=== PATIENT | male | born 1955 | race African-American/Black ===

== ENCOUNTER 2017-10-23 04:22 | Emergency (ER) | payer MEDICARE, MEDICAID ==
[~2017-10-23] VITALS: Ht 177.8 cm; Wt 73.6 kg
[~2017-10-23 04:22] MED LIST: CRESTOR; LUNESTA; NAPR-1176 PO; ZET10 PO
[2017-10-23] MEDS ORDERED: ONDANSETRON HCL 4MG/2ML VIAL IV STA (04:54)
[2017-10-23] MEDS ORDERED: ASPIRIN 81MG TABLET PO ONE (05:00)
[2017-10-23 05:10] VITALS: BP 135/61
[2017-10-23 05:16] LABS: BASOPHILS % 0.2 % (0.0-2.0); EOSINOPHILS % 0.3 % (0.0-5.0); HEMATOCRIT. 38.8 % (42.0-52.0); LYMPHOCYTES % 24.9 % (20.0-50.0); MEAN CORPUSCULAR HEMOGLOBIN 30.3 pg (28.0-32.0); MEAN CORPUSCULAR VOLUME 90.5 fL (80.0-94.0); MEAN PLATELET VOLUME 7.3 fl (7.4-10.4); MONOCYTES % 6.7 % (2.0-8.0); NEUTROPHILS % 67.9 % (40.0-76.0); PLATELET 320 x1000/uL (130-400); RED BLOOD CELL COUNT 4.28 mill/uL (4.7-6.1); RED CELL DISTRIBUTION WIDTH 15.5 % (11.6-14.6)
[2017-10-23 05:23] LABS: PARTIAL THROMBOPLASTIN TIME 24.2 sec (23.4-31.0); PROTHROMBIN TIME 10.5 sec (9.4-11.6)
[2017-10-23 05:28] LABS: CARBON DIOXIDE 30 mEq/L (21-32); CHLORIDE 103 mEq/L (98-107); ETHANOL BLOOD 14 mg/dL; TROPONIN I < 0.02 ng/mL (0.00-0.04)
== END 2017-10-23 07:06 | disposition home or self-care (01) ==
LOC: ER 04:22
DX: K21.9 Gastro-esophageal reflux disease without esophagitis (principal); E78.00 Pure hypercholesterolemia, unspecified; F10.20 Alcohol dependence, uncomplicated; Y90.0 Blood alcohol level of less than 20 mg/100 ml; Z79.82 Long term (current) use of aspirin
CPT/HCPCS: 36415; 71010; 80053; 83690; 83880; 84484; 85025; 85610; 85730; 93005; 96374; 99285; G0482; J2405; J7030

== ENCOUNTER 2018-11-17 12:01 | Emergency (ER) | payer MEDICARE, MEDICAID ==
[~2018-11-17] VITALS: Ht 172.7 cm
[2018-11-17 12:04] VITALS: BP 116/74
== END 2018-11-17 13:35 | disposition left against medical advice (07) ==
LOC: ER 12:12
DX: R07.89 Other chest pain (principal); M79.10 Myalgia, unspecified site; E78.00 Pure hypercholesterolemia, unspecified; F10.20 Alcohol dependence, uncomplicated; Z79.899 Other long term (current) drug therapy; Y90.9 Presence of alcohol in blood, level not specified
CPT/HCPCS: 93005; 99283

== ENCOUNTER 2018-11-19 18:35 | Emergency (ER) | payer MEDICARE, MEDICAID ==
[~2018-11-19] VITALS: Ht 175.3 cm; Wt 75.0 kg
[2018-11-19] MEDS ORDERED: IBUPROFEN 600MG TABLET PO STA (18:49)
[2018-11-19 19:49] LABS: BASOPHILS % 0.4 % (0.0-2.0); EOSINOPHILS % 1.3 % (0.0-5.0); HEMATOCRIT. 38.4 % (42.0-52.0); HEMOGLOBIN. 12.8 g/dL (14.0-18.0); LYMPHOCYTES % 29.8 % (20.0-50.0); MEAN CORPUSCULAR HEMOGLOBIN 31.7 pg (28.0-32.0); MEAN CORPUSCULAR VOLUME 95.3 fL (80.0-94.0); MEAN PLATELET VOLUME 7.8 fl (7.4-10.4); MONOCYTES % 7.5 % (2.0-8.0); PLATELET 344 x1000/uL (130-400); RED BLOOD CELL COUNT 4.03 mill/uL (4.7-6.1); RED CELL DISTRIBUTION WIDTH 16.5 % (11.6-14.6)
[2018-11-19 19:53] LABS: CHLORIDE 107 mEq/L (98-107)
[2018-11-19 19:57] LABS: ETHANOL BLOOD 32 mg/dL
[2018-11-19 20:50] VITALS: BP 127/80
== END 2018-11-19 21:45 | disposition home or self-care (01) ==
LOC: ER 21:45
DX: S20.211A Contusion of right front wall of thorax, initial encounter (principal); E78.00 Pure hypercholesterolemia, unspecified; I51.9 Heart disease, unspecified; Z79.899 Other long term (current) drug therapy; W18.39XA Other fall on same level, initial encounter; Y93.89 Activity, other specified; Y92.89 Other specified places as the place of occurrence of the external cause; Y99.8 Other external cause status
CPT/HCPCS: 36415; 71045; 80053; 80307; 85025; 99284; G0482

== ENCOUNTER 2019-01-04 03:27 | Emergency (ER) | payer MEDICARE, MEDICAID ==
[~2019-01-04] VITALS: Ht 177.8 cm; Wt 82.0 kg
[2019-01-04 03:38] VITALS: BP 109/78
== END 2019-01-04 06:00 | disposition left against medical advice (07) ==
LOC: ER 04:14
DX: Z53.21 Procedure and treatment not carried out due to patient leaving prior to being seen by health care provider (principal)

== ENCOUNTER 2019-03-23 19:01 | Emergency (ER) | payer MEDICARE, MEDICAID ==
[~2019-03-23] VITALS: Ht 182.9 cm; Wt 79.0 kg
[2019-03-23] MEDS ORDERED: IBUPROFEN 600MG TABLET PO ONE (19:45)
[2019-03-23] MEDS ORDERED: CLINDAMYCIN HCL 150MG CAPSULE PO SCH (20:00)
[2019-03-23 21:35] VITALS: BP 106/69
== END 2019-03-23 22:21 | disposition left against medical advice (07) ==
LOC: ER 19:01
DX: S01.511A Laceration without foreign body of lip, initial encounter (principal); T51.91XA Toxic effect of unspecified alcohol, accidental (unintentional), initial encounter; X58.XXXA Exposure to other specified factors, initial encounter; Y93.89 Activity, other specified; Y92.89 Other specified places as the place of occurrence of the external cause; Y99.8 Other external cause status
CPT/HCPCS: 36415; 80320; 99283; G0480

== ENCOUNTER 2019-05-09 12:59 | Emergency (ER) | payer MEDICARE, MEDICAID ==
[~2019-05-09] VITALS: Ht 177.8 cm; Wt 73.0 kg
[2019-05-09 13:10] VITALS: BP 118/60
== END 2019-05-09 15:23 | disposition home or self-care (01) ==
LOC: ER 12:59
DX: F10.10 Alcohol abuse, uncomplicated (principal); M25.552 Pain in left hip; F32.9 Major depressive disorder, single episode, unspecified; F17.210 Nicotine dependence, cigarettes, uncomplicated; Y90.9 Presence of alcohol in blood, level not specified; Z91.81 History of falling
CPT/HCPCS: 99283

== ENCOUNTER 2019-07-26 00:27 | Emergency (ER) | payer MEDICARE, MEDICAID ==
[~2019-07-26] VITALS: Ht 182.9 cm; Wt 82.0 kg
[~2019-07-26 00:27] MED LIST changes: +EZET10TA13 PO; -ZET10 PO
[2019-07-26 00:31] VITALS: BP 110/60
== END 2019-07-26 03:09 | disposition left against medical advice (07) ==
LOC: ER 00:27
DX: Z53.21 Procedure and treatment not carried out due to patient leaving prior to being seen by health care provider (principal)

== ENCOUNTER 2019-10-16 06:38 | Emergency (ER) | payer MEDICARE, MEDICAID ==
[~2019-10-16] VITALS: Ht 188 cm; Wt 82.0 kg
[2019-10-16] MEDS ORDERED: OXYCODONE HCL/ACETAMINOPHEN 5/325MG TABLET PO ONE (07:00)
[2019-10-16 10:00] VITALS: BP 109/64
== END 2019-10-16 10:00 | disposition home or self-care (01) ==
LOC: ER 06:38
DX: M79.18 Myalgia, other site (principal); F41.8 Other specified anxiety disorders; E78.00 Pure hypercholesterolemia, unspecified; W01.0XXA Fall on same level from slipping, tripping and stumbling without subsequent striking against object, initial encounter; Z91.81 History of falling; Y93.01 Activity, walking, marching and hiking; Y92.89 Other specified places as the place of occurrence of the external cause; Y99.9 Unspecified external cause status
CPT/HCPCS: 71101; 73560; 99283

== ENCOUNTER 2019-11-19 04:24 | Emergency (ER) | payer MEDICARE, MEDICAID ==
[~2019-11-19] VITALS: Ht 177.8 cm; Wt 75.0 kg
[2019-11-19] MEDS ORDERED: HYDROCODONE/ACETAMINOPHEN 5/325MG TABLET PO ONE (06:00)
[2019-11-19 07:11] VITALS: BP 170/97
== END 2019-11-19 07:13 | disposition home or self-care (01) ==
LOC: ER 04:24
DX: S22.43XA Multiple fractures of ribs, bilateral, initial encounter for closed fracture (principal); W01.0XXA Fall on same level from slipping, tripping and stumbling without subsequent striking against object, initial encounter; Y93.89 Activity, other specified; Y92.511 Restaurant or cafe as the place of occurrence of the external cause
CPT/HCPCS: 71101; 99283

== ENCOUNTER 2020-12-05 20:52 | Emergency (ER) | payer MEDICARE, MEDICAID ==
[~2020-12-05] VITALS: Ht 177.8 cm; Wt 69.0 kg
[2020-12-05] MEDS ORDERED: MAGNESIUM/ALUMINUM HYDROXIDE/SIMETHICONE 30ML UDC PO STA (22:57)
[2020-12-05] MEDS ORDERED: ONDANSETRON 4MG ODT PO STA (22:57)
[2020-12-05] MEDS ORDERED: VISCOUS LIDOCAINE 2% 15 ML UDC PO STA (22:57)
[2020-12-05] MEDS ORDERED: ACETAMINOPHEN 325MG TABLET PO STA (22:57)
[2020-12-05 23:31] LABS: BASOPHILS % 0.8 % (0.0-2.0); EOSINOPHILS % 0.4 % (0.0-5.0); HEMATOCRIT. 35.8 % (42.0-52.0); HEMOGLOBIN. 12.5 g/dL (14.0-18.0); LYMPHOCYTES % 15.6 % (20.0-50.0); MEAN CORPUSCULAR HEMOGLOBIN 32.4 pg (28.0-32.0); MEAN CORPUSCULAR VOLUME 93.1 fL (80.0-94.0); MEAN PLATELET VOLUME 6.8 fl (7.4-10.4); MONOCYTES % 2.7 % (2.0-8.0); NEUTROPHILS % 80.5 % (40.0-76.0); PLATELET 421 x1000/uL (130-400); RED BLOOD CELL COUNT 3.85 mill/uL (4.7-6.1); RED CELL DISTRIBUTION WIDTH 14.9 % (11.6-14.6)
[2020-12-05 23:35] LABS: CLARITY URINE CLEAR (CLEAR); COLOR URINE YELLOW (YELLOW); KETONES URINE 1+ (NEGATIVE); LEUKOCYTE ESTERASE URINE NEGATIVE (NEGATIVE); NITRITE URINE NEGATIVE (NEGATIVE); OCCULT BLOOD URINE TRACE (NEGATIVE); PROTEIN URINE 1+ (NEGATIVE); SPECIFIC GRAVITY URINE 1.017 (1.005-1.030); UROBILINOGEN URINE 0.2 E.U./dL (0.2-1.0)
[2020-12-05 23:37] LABS: CHLORIDE 109 mEq/L (98-107)
[2020-12-06] MEDS ORDERED: CEFTRIAXONE 1 G PREMIX 50 ML IV ONE (01:00)
[2020-12-06] MEDS ORDERED: ASPIRIN 81MG TABLET PO ONE (01:00)
[2020-12-06] MEDS ORDERED: AZITHROMYCIN 500 MG in DEXT 5% WATER 250 ML IV ONE (01:00)
[2020-12-06 01:30] VITALS: BP 131/91
== END 2020-12-06 01:52 | disposition left against medical advice (07) ==
LOC: ER 20:52
DX: J18.9 Pneumonia, unspecified organism (principal); E16.2 Hypoglycemia, unspecified; Z20.822 Contact with and (suspected) exposure to COVID-19; I10 Essential (primary) hypertension
CPT/HCPCS: 36415; 71045; 74176; 80053; 81003; 82962; 83605; 83690; 83880; 84484; 85025; 87040; 87086; 93005; 99285; J0456; J7060; Q0162

== ENCOUNTER 2021-09-19 14:18 | Emergency (ER) | payer MEDICARE, MEDICAID ==
[~2021-09-19] VITALS: Ht 177.8 cm; Wt 68.0 kg
[2021-09-19] MEDS ORDERED: LIDOCAINE HCL/EPINEPHRINE 1%-EPI 1:100,000 20 ML VIAL INFIL ONE (15:15)
[2021-09-19] MEDS ORDERED: TETANUS, DIPHTHERIA, PERTUSSIS VAC/PF 0.5ML (>10YR OLD) IM ONE (15:15)
[2021-09-19 15:27] VITALS: BP 119/68
[2021-09-19 16:40] LABS: BASOPHILS % 0.3 % (0.0-2.0); EOSINOPHILS % 2.4 % (0.0-5.0); HEMATOCRIT. 37.7 % (42.0-52.0); HEMOGLOBIN. 12.7 g/dL (14.0-18.0); LYMPHOCYTES % 27.4 % (20.0-50.0); MEAN CORPUSCULAR HEMOGLOBIN 34.1 pg (28.0-32.0); MEAN CORPUSCULAR VOLUME 101.3 fL (80.0-94.0); MONOCYTES % 4.4 % (2.0-8.0); NEUTROPHILS % 65.5 % (40.0-76.0); PLATELET 286 x1000/uL (130-400); RED BLOOD CELL COUNT 3.72 mill/uL (4.7-6.1); RED CELL DISTRIBUTION WIDTH 14.6 % (11.6-14.6)
[2021-09-19 16:42] LABS: CHLORIDE 112 mEq/L (98-107)
[2021-09-19 16:45] LABS: PROTHROMBIN TIME 10.3 sec (9.6-11.0)
[2021-09-19 16:51] LABS: CREATINE KINASE 195 IU/L (39-308)
[2021-09-19] MEDS ORDERED: MAGNESIUM 2 G PREMIX 50 ML IV ONE (17:00)
[2021-09-19] MEDS ORDERED: FOLIC ACID 1 MG, THIAMINE HCL 100 MG, MVI, ADULT NO.1 10 ML in DEXTROSE 5% WATER 1,000 ML IV ONE ×2 (17:00→18:00)
== END 2021-09-19 23:08 | disposition home or self-care (01) ==
LOC: ER 14:18
DX: S01.01XA Laceration without foreign body of scalp, initial encounter (principal); F10.229 Alcohol dependence with intoxication, unspecified; R94.31 Abnormal electrocardiogram [ECG] [EKG]; I10 Essential (primary) hypertension; Y90.9 Presence of alcohol in blood, level not specified; W01.0XXA Fall on same level from slipping, tripping and stumbling without subsequent striking against object, initial encounter; Y93.89 Activity, other specified; Y92.018 Other place in single-family (private) house as the place of occurrence of the external cause
CPT/HCPCS: 36415; 70450; 71045; 72125; 80053; 82550; 83690; 84484; 85025; 85610; 90471; 90715; 93005; 96365; 99285; J3411; J3475; J3490; J7040; J7070

== ENCOUNTER 2021-11-02 08:44 | Emergency (ER) | payer MEDICARE, MEDICAID ==
[~2021-11-02] VITALS: Ht 177.8 cm; Wt 78.0 kg
[2021-11-02 09:07] VITALS: BP 140/85
== END 2021-11-02 10:45 | disposition home or self-care (01) ==
LOC: ER 08:44
DX: Z48.02 Encounter for removal of sutures (principal)
CPT/HCPCS: 99281

== ENCOUNTER 2021-12-19 20:27 | Emergency (ER) | payer MEDICARE, MEDICAID ==
[~2021-12-19] VITALS: Ht 172.7 cm; Wt 69.0 kg
[2021-12-19] MEDS ORDERED: TETANUS, DIPHTHERIA, PERTUSSIS VAC/PF 0.5ML (>10YR OLD) IM ONE (21:30)
[2021-12-19] MEDS ORDERED: BACITRACIN/POLYMYXIN B SULFATE OINT 15GM TOP ONE (23:45)
[2021-12-20] MEDS ORDERED: ACETAMINOPHEN 325MG TABLET PO ONE
[2021-12-20] MEDS ORDERED: IBUPROFEN 400MG TABLET PO ONE
[2021-12-20] MEDS ORDERED: BACITRACIN 15GM TUBE TOP ONE
[2021-12-20 00:06] VITALS: BP 134/77
== END 2021-12-20 00:25 | disposition home or self-care (01) ==
LOC: ER 20:27
DX: S01.112A Laceration without foreign body of left eyelid and periocular area, initial encounter (principal); S01.01XA Laceration without foreign body of scalp, initial encounter; R51.9 Headache, unspecified; W18.30XA Fall on same level, unspecified, initial encounter; Y93.89 Activity, other specified; Y92.89 Other specified places as the place of occurrence of the external cause; Y99.8 Other external cause status
CPT/HCPCS: 12002; 12011; 70486; 90471; 90715; 99284

== ENCOUNTER 2022-04-27 19:17 | Inpatient (IN) | payer OTHER, MEDICAID ==
[~2022-04-27] VITALS: Ht 177.8 cm; Wt 62.6 kg
[2022-04-27] MEDS ORDERED: ONDANSETRON HCL 4MG/2ML INJ IV STA (19:24)
[2022-04-27 20:46] LABS: HEMATOCRIT. 49.1 % (42.0-52.0); HEMOGLOBIN. 17.3 g/dL (14.0-18.0); MEAN CORPUSCULAR HEMOGLOBIN 34.2 pg (28.0-32.0); MEAN CORPUSCULAR VOLUME 96.9 fL (80.0-94.0); PLATELET 348 x1000/uL (130-400); RED BLOOD CELL COUNT 5.06 mill/uL (4.7-6.1); RED CELL DISTRIBUTION WIDTH 13.8 % (11.6-14.6)
[2022-04-27 20:50] LABS: CHLORIDE 71 mEq/L (98-107)
[2022-04-27 21:00] LABS: ETHANOL BLOOD < 10 mg/dL
[2022-04-27 21:37] LABS: PLATELET ESTIMATE NORMAL
[2022-04-27] MEDS: MORPHINE SULFATE 4 MG/ML CPJ (NOT FOR IM USE) IV STA ×2 (22:01→22:11)
[2022-04-27] MEDS ORDERED: SODIUM CHLORIDE 0.9% 500 ML IV ONE (22:15)
[2022-04-27] MEDS ORDERED: ASPIRIN 81MG TABLET PO ONE (23:45)
[2022-04-28] MEDS ORDERED: NALOXONE HCL 0.4 MG/ML 1ML VIAL IV PRN (00:15)
[2022-04-28] MEDS ORDERED: IPRATROPIUM/ALBUTEROL 0.5-3(2.5)MG/3ML NEB HHN PRN (00:15)
[2022-04-28] MEDS ORDERED: CLONIDINE 0.1MG TABLET PO PRN (00:15)
[2022-04-28] MEDS ORDERED: ACETAMINOPHEN 325MG TABLET PO PRN (00:15)
[2022-04-28] MEDS: SODIUM CHLORIDE 0.9% 1,000 ML IV SCH ×2 (00:36→03:00)
[2022-04-28 02:40] LABS: CLARITY URINE CLEAR (CLEAR); COLOR URINE YELLOW (YELLOW); KETONES URINE TRACE (NEGATIVE); LEUKOCYTE ESTERASE URINE NEGATIVE (NEGATIVE); NITRITE URINE NEGATIVE (NEGATIVE); OCCULT BLOOD URINE NEGATIVE (NEGATIVE); PROTEIN URINE TRACE (NEGATIVE); SPECIFIC GRAVITY URINE 1.015 (1.005-1.030)
[2022-04-28 02:54] LABS: *AMPHETAMINES SCREEN URINE NEGATIVE (NEGATIVE); *BARBITURATES SCREEN URINE NEGATIVE (NEGATIVE); *BENZODIAZEPINES SCREEN URINE NEGATIVE (NEGATIVE); *COCAINE SCREEN URINE NEGATIVE (NEGATIVE); CANNABINOID URINE SCREEN NEGATIVE (NEGATIVE); METHADONE URINE SCREEN NEGATIVE (NEGATIVE); OPIATES URINE SCREEN PRESUMTIVE POSITIVE (NEGATIVE); PHENCYCLIDINE URINE SCREEN NEGATIVE (NEGATIVE)
[2022-04-28 03:00] VITALS: BP 127/82
[2022-04-28 07:11] LABS: CREATINE KINASE 36 IU/L (39-308); CREATINE KINASE MB FRACTION < 1.0 ng/mL (0.5-3.6)
[2022-04-28 08:00] VITALS: BP 104/67
[2022-04-28] MEDS ORDERED: DEXTROSE 50% WATER 50ML SYRINGE IV PRN (08:15)
[2022-04-28] MEDS: ONDANSETRON HCL 4MG/2ML INJ IV PRN (08:43)
[2022-04-28 12:00] VITALS: BP 109/78
[2022-04-28] MEDS ORDERED: KCL 20MEQ/100ML PREMIX 100 ML IV NR (12:00)
[2022-04-28 12:13] LABS: PHOSPHORUS 3.2 mg/dL (2.5-4.9)
[2022-04-28] MEDS: BLOOD SUGAR DIAGNOSTIC STRIP TEST SCH ×3 (12:20→20:25)
[2022-04-28] MEDS ORDERED: POTASSIUM CHLORIDE 20MEQ TABLET SR PO NR (12:30)
[2022-04-28] MEDS ORDERED: FOLIC ACID 1 MG, THIAMINE HCL 100 MG, MVI, ADULT NO.1 10 ML in DEXT 5%/0.9% NACL 1,000 ML IV ONE ×4 (13:00)
[2022-04-28] MEDS: INSULIN LISPRO 100 UNITS/ML SUBCUT SCH ×3 (13:35→20:25)
[2022-04-28 16:30] VITALS: BP 108/70
[2022-04-28 16:51] LABS: CREATINE KINASE 33 IU/L (39-308); CREATINE KINASE MB FRACTION < 1.0 ng/mL (0.5-3.6)
[2022-04-28] MEDS: MAGNESIUM/ALUMINUM HYDROXIDE/SIMETHICONE 30ML UDC PO PRN (19:41)
[2022-04-28 20:00] VITALS: BP 120/68
[2022-04-28] MEDS: CHLORDIAZEPOXIDE 25MG CAPSULE PO SCH (21:28)
[2022-04-29] VITALS: BP 127/70
[2022-04-29 04:00] VITALS: BP 130/72
[2022-04-29] MEDS: HYDROCODONE/ACETAMINOPHEN 5/325MG TABLET PO PRN ×2 (05:16→09:50)
[2022-04-29] MEDS: DEXT 5%/0.9% NACL KCL 20MEQ/L 1,000 ML IV SCH (05:16)
[2022-04-29] MEDS: CHLORDIAZEPOXIDE 25MG CAPSULE PO SCH ×3 (05:16→21:06)
[2022-04-29 06:28] LABS: HEMATOCRIT. 39.5 % (42.0-52.0); HEMOGLOBIN. 13.6 g/dL (14.0-18.0); MEAN CORPUSCULAR VOLUME 98.3 fL (80.0-94.0); MEAN PLATELET VOLUME 8.7 fl (7.4-10.4); PLATELET 334 x1000/uL (130-400); RED BLOOD CELL COUNT 4.01 mill/uL (4.7-6.1); RED CELL DISTRIBUTION WIDTH 13.6 % (11.6-14.6)
[2022-04-29] MEDS: BLOOD SUGAR DIAGNOSTIC STRIP TEST SCH ×4 (06:33→20:13)
[2022-04-29 06:43] LABS: CHLORIDE 86 mEq/L (98-107)
[2022-04-29 07:06] LABS: HDL CHOLESTEROL 55 mg/dL (40-59); LDL CHOLESTEROL 124 mg/dL (5-100)
[2022-04-29] MEDS ORDERED: POTASSIUM CHLORIDE 20MEQ TABLET SR PO NR (07:30)
[2022-04-29 08:00] VITALS: BP 124/80
[2022-04-29] MEDS ORDERED: POTASSIUM CHLORIDE INJ 40 MEQ in DEXT 5% WATER 250 ML IV NR (08:30)
[2022-04-29] MEDS: INSULIN LISPRO 100 UNITS/ML SUBCUT SCH ×4 (09:04→20:13)
[2022-04-29] MEDS ORDERED: FOLIC ACID 1 MG, THIAMINE HCL 100 MG, MVI, ADULT NO.1 10 ML in DEXT 5%/0.9% NACL 1,000 ML IV SCH ×8 (11:30→14:30)
[2022-04-29 12:00] VITALS: BP 122/78
[2022-04-29 14:06] LABS: PLATELET ESTIMATE NORMAL
[2022-04-29 15:45] LABS: BG BASE EXCESS 6.9 mmol/L (-2.0-2.0); BG CARBOXYHEMOGLOBIN 0.3 % (0.5-1.5); BG DEOXYHEMOGLOBIN 3.5 % (0.0-5.0); BG HCO3 ACT 30.5 mmol/L (22.0-26.0); BG METHEMOGLOBIN 0.3 % (0.0-1.5); BG OXYGEN SATURATION 96.5 % (92.0-98.5); BG OXYHEMOGLOBIN 95.9 % (94.0-97.0); BG PCO2 39.7 mmHg (35.0-45.0); BG PH 7.503 (7.350-7.450); BG PO2 85.4 mmHg (75.0-100.0); BG SAMPLE SITE RIGHT BRACHIAL; BG TOTAL HEMOGLOBIN 14.5 g/dL (12.0-18.0); BG VENT MODE ROOM AIR
[2022-04-29 16:00] VITALS: BP 119/84
[2022-04-29 16:17] LABS: HEMATOCRIT. 41.7 % (42.0-52.0); HEMOGLOBIN. 14.2 g/dL (14.0-18.0); MEAN CORPUSCULAR HEMOGLOBIN 33.6 pg (28.0-32.0); MEAN CORPUSCULAR VOLUME 98.7 fL (80.0-94.0); MEAN PLATELET VOLUME 8.7 fl (7.4-10.4); PLATELET 345 x1000/uL (130-400); RED BLOOD CELL COUNT 4.22 mill/uL (4.7-6.1); RED CELL DISTRIBUTION WIDTH 13.8 % (11.6-14.6)
[2022-04-29 16:31] LABS: TOTAL IRON BINDING CAPACITY 410 ug/dL (250-450)
[2022-04-29 16:57] LABS: PLATELET ESTIMATE NORMAL; VITAMIN B12 SERUM >2000 pg/mL pg/mL (211-911)
[2022-04-29 20:00] VITALS: BP 137/96
[2022-04-29] MEDS: MAGNESIUM/ALUMINUM HYDROXIDE/SIMETHICONE 30ML UDC PO PRN (20:12)
[2022-04-29] MEDS: ATORVASTATIN CALCIUM 20MG TABLET PO SCH (20:13)
[2022-04-30] VITALS: BP 128/85
[2022-04-30 01:59] LABS: SODIUM URINE RANDOM 64 mEq/L
[2022-04-30] MEDS: CHLORDIAZEPOXIDE 25MG CAPSULE PO SCH ×3 (05:08→21:23)
[2022-04-30] MEDS: DEXT 5%/0.9% NACL KCL 20MEQ/L 1,000 ML IV SCH (05:09)
[2022-04-30 07:02] LABS: HEMATOCRIT. 38.9 % (42.0-52.0); HEMOGLOBIN. 13.5 g/dL (14.0-18.0); MEAN CORPUSCULAR VOLUME 98.3 fL (80.0-94.0); MEAN PLATELET VOLUME 8.6 fl (7.4-10.4); PLATELET 363 x1000/uL (130-400); RED BLOOD CELL COUNT 3.96 mill/uL (4.7-6.1)
[2022-04-30 07:03] LABS: CHLORIDE 99 mEq/L (98-107)
[2022-04-30] MEDS: BLOOD SUGAR DIAGNOSTIC STRIP TEST SCH ×3 (07:20→21:22)
[2022-04-30 08:00] VITALS: BP 130/75
[2022-04-30] MEDS: INSULIN LISPRO 100 UNITS/ML SUBCUT SCH ×3 (09:55→21:00)
[2022-04-30] MEDS ORDERED: SODIUM PHOS,M-BASIC-D-BASIC 20 MM in DEXT 5% WATER 243.3333 ML IV NR (10:00)
[2022-04-30] MEDS ORDERED: MAGNESIUM 4 G PREMIX 100 ML IV NR (10:00)
[2022-04-30] MEDS ORDERED: SODIUM PHOS,M-BASIC-D-BASIC 30 MM in DEXT 5% WATER 500 ML IV NR (10:00)
[2022-04-30] MEDS ORDERED: CHLO25CA10 MT (10:47)
[2022-04-30] MEDS ORDERED: FOLI-43 MT (10:47)
[2022-04-30] MEDS ORDERED: THIA100T72 MT (10:47)
[2022-04-30] MEDS ORDERED: MULT-379 MT (10:47)
[2022-04-30] MEDS ORDERED: MAGN400T26 MT (10:47)
[2022-04-30] MEDS: FOLIC ACID 1MG TABLET PO SCH (12:00)
[2022-04-30] MEDS: THIAMINE HCL 100MG TABLET PO SCH (12:00)
[2022-04-30 13:36] LABS: PLATELET ESTIMATE NORMAL
[2022-04-30 16:00] VITALS: BP 110/58
[2022-04-30] MEDS ORDERED: POTASSIUM PHOS,M-BASIC-D-BASIC 20 MMOL in DEXT 5% WATER 243.3333 ML IV NR (16:00)
[2022-04-30 20:00] VITALS: BP 112/61
[2022-04-30] MEDS: ATORVASTATIN CALCIUM 20MG TABLET PO SCH (21:23)
[2022-05-01] VITALS: BP 115/63
[2022-05-01 03:43] VITALS: BP 113/72
[2022-05-01] MEDS: CHLORDIAZEPOXIDE 25MG CAPSULE PO SCH ×3 (05:47→21:03)
[2022-05-01 06:36] LABS: BASOPHILS % 0.4 % (0.0-2.0); EOSINOPHILS % 2.2 % (0.0-5.0); HEMATOCRIT. 34.3 % (42.0-52.0); HEMOGLOBIN. 11.9 g/dL (14.0-18.0); LYMPHOCYTES % 16.1 % (20.0-50.0); MEAN CORPUSCULAR HEMOGLOBIN 34.1 pg (28.0-32.0); MEAN CORPUSCULAR VOLUME 98.7 fL (80.0-94.0); MEAN PLATELET VOLUME 8.7 fl (7.4-10.4); MONOCYTES % 11.6 % (2.0-8.0); NEUTROPHILS % 69.7 % (40.0-76.0); PLATELET 337 x1000/uL (130-400); RED BLOOD CELL COUNT 3.48 mill/uL (4.7-6.1); RED CELL DISTRIBUTION WIDTH 13.8 % (11.6-14.6)
[2022-05-01] MEDS: BLOOD SUGAR DIAGNOSTIC STRIP TEST SCH ×4 (06:37→21:03)
[2022-05-01 06:43] LABS: CHLORIDE 99 mEq/L (98-107)
[2022-05-01] MEDS: INSULIN LISPRO 100 UNITS/ML SUBCUT SCH ×4 (07:50→21:00)
[2022-05-01 08:00] VITALS: BP 141/78
[2022-05-01] MEDS: THIAMINE HCL 100MG TABLET PO SCH (09:07)
[2022-05-01] MEDS: FOLIC ACID 1MG TABLET PO SCH (09:07)
[2022-05-01 12:00] VITALS: BP 108/66
[2022-05-01] MEDS: POTASSIUM-SODIUM PHOSPHATE POWDER PACKET PO SCH (17:40)
[2022-05-01] MEDS: ATORVASTATIN CALCIUM 20MG TABLET PO SCH (21:03)
[2022-05-01 23:51] VITALS: BP 125/84
[2022-05-02 04:00] VITALS: BP 126/82
[2022-05-02] MEDS: ONDANSETRON HCL 4MG/2ML INJ IV PRN (04:12)
[2022-05-02] MEDS: CHLORDIAZEPOXIDE 25MG CAPSULE PO SCH ×3 (06:09→22:01)
[2022-05-02] MEDS: BLOOD SUGAR DIAGNOSTIC STRIP TEST SCH ×4 (06:21→21:59)
[2022-05-02] MEDS: INSULIN LISPRO 100 UNITS/ML SUBCUT SCH ×4 (07:50→22:02)
[2022-05-02 08:00] VITALS: BP 114/77
[2022-05-02] MEDS: POTASSIUM-SODIUM PHOSPHATE POWDER PACKET PO SCH ×2 (09:00→16:22)
[2022-05-02] MEDS: THIAMINE HCL 100MG TABLET PO SCH ×2 (09:00→16:22)
[2022-05-02] MEDS: FOLIC ACID 1MG TABLET PO SCH ×2 (09:00→16:22)
[2022-05-02 11:25] LABS: BASOPHILS % 0.3 % (0.0-2.0); EOSINOPHILS % 1.3 % (0.0-5.0); HEMATOCRIT. 36.6 % (42.0-52.0); HEMOGLOBIN. 12.5 g/dL (14.0-18.0); LYMPHOCYTES % 15.3 % (20.0-50.0); MEAN CORPUSCULAR HEMOGLOBIN 34.2 pg (28.0-32.0); MEAN PLATELET VOLUME 8.6 fl (7.4-10.4); MONOCYTES % 11.1 % (2.0-8.0); PLATELET 342 x1000/uL (130-400); RED BLOOD CELL COUNT 3.67 mill/uL (4.7-6.1); RED CELL DISTRIBUTION WIDTH 14.1 % (11.6-14.6)
[2022-05-02 11:38] LABS: CHLORIDE 103 mEq/L (98-107)
[2022-05-02 11:50] LABS: PHOSPHORUS 1.4 mg/dL (2.5-4.9)
[2022-05-02] MEDS: MAGNESIUM/ALUMINUM HYDROXIDE/SIMETHICONE 30ML UDC PO PRN (13:05)
[2022-05-02] MEDS ORDERED: LORAZEPAM 1MG TABLET PO PRN (14:15)
[2022-05-02 16:00] VITALS: BP 120/80
[2022-05-02] MEDS ORDERED: MAGNESIUM 2 G PREMIX 50 ML IV NR (17:00)
[2022-05-02] MEDS ORDERED: MORPHINE SULFATE 2 MG/ML CPJ (NOT FOR IM USE) IV PRN (17:00)
[2022-05-02] MEDS ORDERED: POTASSIUM PHOS,M-BASIC-D-BASIC 20 MMOL in DEXT 5% WATER 243.3333 ML IV NR ×2 (17:00→20:00)
[2022-05-02 20:00] VITALS: BP 136/86
[2022-05-02] MEDS: ATORVASTATIN CALCIUM 20MG TABLET PO SCH (22:01)
[2022-05-03] VITALS: BP 122/66
[2022-05-03 04:00] VITALS: BP 139/88
[2022-05-03 04:06] VITALS: BP 139/88
[2022-05-03] MEDS: CHLORDIAZEPOXIDE 25MG CAPSULE PO SCH ×2 (06:41→13:29)
[2022-05-03] MEDS: BLOOD SUGAR DIAGNOSTIC STRIP TEST SCH ×3 (06:42→16:25)
[2022-05-03] MEDS: INSULIN LISPRO 100 UNITS/ML SUBCUT SCH ×3 (07:50→17:04)
[2022-05-03] MEDS: FOLIC ACID 1MG TABLET PO SCH (09:00)
[2022-05-03] MEDS: POTASSIUM-SODIUM PHOSPHATE POWDER PACKET PO SCH ×2 (09:00→15:59)
[2022-05-03] MEDS: THIAMINE HCL 100MG TABLET PO SCH (09:00)
[2022-05-03] MEDS ORDERED: MAGNESIUM OXIDE 400MG TABLET PO NR (15:45)
[2022-05-03 15:47] VITALS: BP 128/80
== END 2022-05-03 20:51 | disposition home or self-care (01) | DRG 640 ==
LOC: ER 19:17 → 6WST 23:39 → ENRESERV 04-28 00:51
PROVIDERS: ADMIT Internal Medicine; ATTEND Internal Medicine
DX: E86.0 Dehydration (principal); N17.0 Acute kidney failure with tubular necrosis; E44.1 Mild protein-calorie malnutrition; K86.1 Other chronic pancreatitis; Z68.1 Body mass index [BMI] 19.9 or less, adult; E87.1 Hypo-osmolality and hyponatremia; E87.3 Alkalosis; E87.6 Hypokalemia; F10.20 Alcohol dependence, uncomplicated; J44.9 Chronic obstructive pulmonary disease, unspecified; E86.1 Hypovolemia; I25.10 Atherosclerotic heart disease of native coronary artery without angina pectoris; J84.10 Pulmonary fibrosis, unspecified; I95.9 Hypotension, unspecified; D64.9 Anemia, unspecified; E78.5 Hyperlipidemia, unspecified; E83.39 Other disorders of phosphorus metabolism; F17.210 Nicotine dependence, cigarettes, uncomplicated; R62.7 Adult failure to thrive; Z96.611 Presence of right artificial shoulder joint; Z53.20 Procedure and treatment not carried out because of patient's decision for unspecified reasons; K21.9 Gastro-esophageal reflux disease without esophagitis; R79.89 Other specified abnormal findings of blood chemistry; Z20.822 Contact with and (suspected) exposure to COVID-19; G62.9 Polyneuropathy, unspecified; I10 Essential (primary) hypertension; Z87.81 Personal history of (healed) traumatic fracture; Z91.81 History of falling; Z79.82 Long term (current) use of aspirin; Z82.49 Family history of ischemic heart disease and other diseases of the circulatory system; Z82.5 Family history of asthma and other chronic lower respiratory diseases; Z79.899 Other long term (current) drug therapy; Z71.41 Alcohol abuse counseling and surveillance of alcoholic
CPT/HCPCS: 36415; 36600; 71045; 71250; 74176; 80048; 80053; 80061; 80305; 80320; 81003; 82375; 82550; 82553; 82607; 82805; 82962; 83036; 83540; 83550; 83735; 83880; 83930; 83935; 84100; 84132; 84300; 84443; 84484; 85025; 85044; 87426; 93005; 93970; 99285; C9803; J1815; J2270; J2405; J3411; J3475; J3480; J3490; J7040; J7042; J7060; A4315; G0480